=== PATIENT | female | born 1970 | race Asian ===

== ENCOUNTER 2023-09-06 15:50 | Emergency (ER) | payer OTHER ==
[2023-09-06 16:08] VITALS: BP 124/74; PULSE 67; RESP 18; TEMP 98.1; BMI 25.8
[2023-09-06] MEDS ORDERED: IBUPROFEN 600 MG TABLET (FP) PO ONE ×2 (17:33→17:49)
[2023-09-06] MEDS ORDERED: AMOX TR/POT CLAV 875MG/125MG TABLETS (FP) PO ONE (17:35)
[2023-09-06] MEDS ORDERED: AMOX TR/POT CLAV 875MG/125MG TABLETS (FP) ONE (17:49)
== END 2023-09-06 18:20 | disposition home or self-care (01) ==
LOC: JERFT 15:50
DX: M25.571 Pain in right ankle and joints of right foot (principal); M77.51 Other enthesopathy of right foot and ankle; L03.115 Cellulitis of right lower limb
CPT/HCPCS: 73610-TC-RT-FY; 73630-TC-RT-FY; 76882-TC-RT; 99284-25

== ENCOUNTER 2024-01-01 01:48 | Emergency (ER) | payer OTHER ==
[2024-01-01 01:57] VITALS: BP 131/84; PULSE 90; RESP 18; TEMP 98.2; BMI 26.2
[2024-01-01] MEDS ORDERED: ACETAMINOPHEN 500 MG TABLET (FP) ONE (02:41)
[2024-01-01] MEDS: ACETAMINOPHEN 500 MG TABLET (FP) PO ONE (02:58)
== END 2024-01-01 03:44 | disposition home or self-care (01) ==
LOC: JER 01:48
DX: R05.9 Cough, unspecified (principal); J00 Acute nasopharyngitis [common cold]; B34.9 Viral infection, unspecified; R09.89 Other specified symptoms and signs involving the circulatory and respiratory systems; Z20.822 Contact with and (suspected) exposure to COVID-19
CPT/HCPCS: 0241U-QW; 71046-TC-FY; 99284-25